=== PATIENT | female | born 1965 | race Caucasian/White ===

== ENCOUNTER 2023-03-19 11:40 | Emergency (ER) | payer MEDICAID ==
[~2023-03-19] VITALS: Ht 180.3 cm; Wt 81.8 kg
[2023-03-19 12:27] VITALS: BP 128/69
[2023-03-19] MEDS ORDERED: morphine 4 MG/ML inj SYRINge IM ONE (14:50)
[2023-03-19] MEDS ORDERED: ibuprofen 200mg tablet PO ONE (15:05)
[2023-03-19] MEDS ORDERED: PRED10TA23 PO (17:08)
== END 2023-03-19 17:10 | disposition home or self-care (01) ==
LOC: ER 11:41
DX: M54.59 Other low back pain (principal); W19.XXXA Unspecified fall, initial encounter; Y93.89 Activity, other specified; Y92.89 Other specified places as the place of occurrence of the external cause; Y99.8 Other external cause status
CPT/HCPCS: 72100; 72220; 99284

== ENCOUNTER 2024-04-07 11:54 | Day surgery (SDC) | payer MEDICAID ==
[~2024-04-07] VITALS: Ht 180.3 cm; Wt 81.6 kg
[2024-04-07] VITALS (11 sets, daily range): BP systolic 95–130; BP diastolic 63–74; PULSE 53–66; RESP 16; TEMP 97.6; O2SAT 94–97
[2024-04-07] MEDS ORDERED: nitroGLYCERIN 0.4mg SUBLingual tab SL PRN ×2 (12:15→15:00)
[2024-04-07] MEDS ORDERED: LISI20TA28 PO (12:43)
[2024-04-07] MEDS ORDERED: MELO-102 PO (12:43)
[2024-04-07] MEDS ORDERED: ESTR1PAT97 (12:43)
[2024-04-07] MEDS ORDERED: SUMA100T16 PO (12:43)
[2024-04-07] MEDS ORDERED: AMIT10TA6 PO (12:43)
[2024-04-07] MEDS ORDERED: OXYB-58 PO (12:43)
[2024-04-07] MEDS ORDERED: LEVO100T9 PO (12:43)
[2024-04-07] MEDS ORDERED: iohexol 350 MG/ML 50ML vial IV ONE (12:47)
[2024-04-07] MEDS ORDERED: LIDOcaine 1% 30ml preserv. free vial ONE (12:47)
[2024-04-07] MEDS ORDERED: iohexol 350MG/ML 100ml bottle IV ONE (12:48)
[2024-04-07 12:54] LABS: ALBUMIN 3.7 G/DL (3.4-5.0); ANION GAP 6 (8-16); BLOOD UREA NITROGEN 20 MG/DL (7-18); BUN/CREATININE RATIO 22.7 (10.0-20.0); CALCIUM 8.9 MG/DL (8.5-10.1); CHLORIDE 107 MMOL/L (99-107); CREATININE 0.88 MG/DL (0.40-0.90); GLUCOSE 96 MG/DL (70-104); POTASSIUM 4.3 MMOL/L (3.5-5.1); SODIUM 139 MMOL/L (135-145); eCRCL 78 ML/MIN; eGFR 66 ML/MIN
[2024-04-07 12:55] LABS: BASOPHILS % (AUTO) 0.9 % (0-1); EOSINOPHILS # (AUTO) 0.1 X10'3 (0-0.9); EOSINOPHILS % (AUTO) 3.2 % (0-6); HEMATOCRIT 39.7 % (35.0-45.0); HEMOGLOBIN 13.6 g/dl (12.0-16.0); LYMPHOCYTES # (AUTO) 1.5 X10'3 (1.1-4.8); LYMPHOCYTES % (AUTO) 39.2 % (21-51); MEAN CORPUSCULAR HEMOGLOBIN 30.4 PG (27.0-31.0); MEAN CORPUSCULAR HGB CONC 34.3 g/dL (33.0-36.5); MEAN CORPUSCULAR VOLUME 88.7 FL (78-98); MEAN PLATELET VOLUME 9.4 FL (7.4-10.4); MONOCYTES # (AUTO) 0.4 X10'3 (0-0.9); MONOCYTES % (AUTO) 10.4 % (2-12); NEUTROPHILS # (AUTO) 1.8 X10'3 (1.8-7.7); NEUTROPHILS % (AUTO) 46.3 % (42-75); PLATELET COUNT 152 X10'3 (140-440); RED BLOOD COUNT 4.47 X10'6 (4.20-5.60); RED CELL DISTRIBUTION WIDTH 12.6 % (11.5-14.5); WHITE BLOOD COUNT 3.8 X10'3 (4.5-11.0)
[2024-04-07 12:58] LABS: APTT 26 SECONDS (22-32); PROTHROMBIN TIME 10.4 SECONDS (9.0-12.0)
[2024-04-07] MEDS: LORazepam 0.5 MG tablet PO PRN (13:19)
[2024-04-07] MEDS: diphenhydrAMINE 25mg capsule PO PRN (13:19)
[2024-04-07] MEDS: normal saline 1,000 ML IV SCH (13:21)
[2024-04-07] MEDS ORDERED: fentaNYL/PF 50MCG/1 ML 2ML syringe ONE (13:22)
[2024-04-07] MEDS ORDERED: midazolam 1 mg/ML 2ml injection ONE ×2 (13:22→14:06)
[2024-04-07] MEDS ORDERED: HYDROmorphone 1 mg/ml syringe ONE (14:29)
[2024-04-07] MEDS ORDERED: normal saline 1,000 ML IV ONE (14:59)
[2024-04-07] MEDS ORDERED: OXAZEpam 15mg capsule PO PRN (15:00)
[2024-04-07] MEDS ORDERED: ondansetron/PF 4mg/2ml inj IV PRN (15:00)
[2024-04-07] MEDS ORDERED: proCHLORperazine 10 MG/2 ml inj IV PRN (15:00)
== END 2024-04-07 18:55 | disposition home or self-care (01) ==
LOC: SSTAY O 11:54
PROVIDERS: ATTEND Internal Medicine Cardiovascular Disease
DX: R94.39 Abnormal result of other cardiovascular function study (principal); I25.119 Atherosclerotic heart disease of native coronary artery with unspecified angina pectoris; I25.2 Old myocardial infarction; I10 Essential (primary) hypertension; E03.9 Hypothyroidism, unspecified; G43.909 Migraine, unspecified, not intractable, without status migrainosus; G47.00 Insomnia, unspecified; M81.0 Age-related osteoporosis without current pathological fracture; M19.90 Unspecified osteoarthritis, unspecified site; Z79.890 Hormone replacement therapy; Z79.899 Other long term (current) drug therapy; Z91.030 Bee allergy status; Z91.018 Allergy to other foods; Z88.8 Allergy status to other drugs, medicaments and biological substances
CPT/HCPCS: 36415; 71046; 80048; 85025; 85610; 85730; 93005; 93458; 99152; 99153; J1170; J1644; J2250; J3010; J3490; J7030; Q0163; Q9967; A6258; C1760